=== PATIENT | male | born 1980 | race African-American/Black ===

== ENCOUNTER 2017-12-19 14:55 | Emergency (ER) | payer SELFPAY ==
[2017-12-19 15:04] VITALS: BP 112/63; PULSE 58; RESP 18; TEMP 98; O2SAT 99
--- NOTE | 2017-12-19 16:09 | PD ---
HPI Chief Complaint: GI Complaint Time Seen by Provider: 15:34 Travel History International Travel<30 days: No Contact w/Intl Traveler<30days: No Traveled to known affect area: No History of Present Illness HPI Patient is a 37-year-old male presenting to the emergency department for evaluation of shortness of breath and right rib pain. Patient states his symptoms started at 930 this morning, symptoms last until 1030. He also reports having a right inguinal hernia and reports associated pain with it however the hernia is reducible. He also reported that he needed a note for work because he called in sick today. He called in sick prior to having the shortness of breath this morning. Patient has no other complaints at this time. He reports a right rib injury 13 years ago, no new injury or trauma to cause any rib pain. He denies any cough, fever, chills, abdominal pain, back pain. He states he felt nauseated on Friday but has not vomited or felt nauseous since then. [facility] Past Medical History Inguinal Hernia: Yes (repair) Past Surgical History Abdominal Surgery: Yes (hernia) Social History Alcohol Use: Yes (1 beer per week) Tobacco Use: Yes (1/2 ppd) Substance Use: Yes (marijuana 3-4 per day) Allergies-Medications (Allergen,Severity, Reaction): Coded Allergies: No Known Allergies (Verified , 04/30/15) Reported Meds & Prescriptions Reported Meds & Active Scripts Active No Active Prescriptions or Reported Medications Review of Systems Except as stated in HPI: all other systems reviewed are Neg Respiratory: Positive: Shortness of Breath Physical Exam Narrative GENERAL: Well-developed, well-nourished, well-appearing male. Presenting in no acute distress. SKIN: Warm and dry. HEAD: Atraumatic. Normocephalic. EYES: Pupils equal and round. No scleral icterus. No injection or drainage. ENT: No nasal bleeding or discharge. Mucous membranes pink and moist. NECK: Trachea midline. No JVD. CARDIOVASCULAR: Regular rate and rhythm. RESPIRATORY: No accessory muscle use. Clear to auscultation. Breath sounds equal bilaterally. GASTROINTESTINAL: Abdomen soft, non-tender, nondistended. Hepatic and splenic margins not palpable. No rebound, no guarding, positive bowel sounds. MUSCULOSKELETAL: Extremities without clubbing, cyanosis, or edema. No obvious deformities. NEUROLOGICAL: Awake and alert. No obvious cranial nerve deficits. Motor grossly within normal limits. Five out of 5 muscle strength in the arms and legs. Normal speech. PSYCHIATRIC: Appropriate mood and affect; insight and judgment normal. Data Data Last Documented VS Vital Signs Date Time Temp Pulse Resp B/P (MAP) Pulse Ox O2 Delivery O2 Flow Rate FiO2 12/19/17 15:04 98.0 58 18 112/63 (79) 99 Orders Orders Chest, Single Ap (12/19/17 ) [facility] Medical Decision Making Medical Screen Exam Complete: Yes Emergency Medical Condition: Yes Interpretation(s) Last Impressions Chest X-Ray 12/19/17 0000 Signed Impressions: CONCLUSION: Negative for acute process Vital Signs Date Time Temp Pulse Resp B/P (MAP) Pulse Ox O2 Delivery O2 Flow Rate FiO2 12/19/17 15:04 98.0 58 18 112/63 (79) 99 Differential Diagnosis Costochondritis versus hernia versus incarcerated hernia versus normal examination versus other Narrative Course Patient is a 37-year-old male presenting to the emergency department with multiple vague medical complaints. The hernia pain he reported as chronic, there is no new issues, the hernia is easily reducible on exam. Lung sounds are clear. Patient is a smoker, a single view chest x-ray is ordered and pending. X-ray shows no acute abnormality. Patient will be discharged home, he is encouraged return to emergency department for any new worsening symptoms. Patient was encouraged to avoid tobacco use. Patient stable for discharge. Diagnosis Primary Impression: Breath shortness Referrals: Primary Care Physician Patient Instructions: General Instructions, Shortness of Breath (ED) Departure Forms: Tests/Procedures, Work Release Enter return to work date: Dec 20, 2017 Additional Instructions: Follow-up with your primary doctor Avoid tobacco use Return to emergency department immediately for any new worsening symptoms Med/Other Pt SpecificInfo: No Change to Meds Scripts No Active Prescriptions or Reported Meds Disposition: 01 DISCHARGE HOME Condition: Stable Lidia Albert Dec 19, 2017 16:09
--- NOTE | 2017-12-19 16:13 | RADRPT ---
EXAM DATE: 12/19/2017 4:11 PM EDT AGE/SEX: 37 years / Male INDICATIONS: Shortness of breath and right sided chest pain. CLINICAL DATA: This is the patient's initial encounter. Patient reports that signs and symptoms have been present for 1 day and indicates a pain score of 5/10. MEDICAL/SURGICAL HISTORY: None. None. COMPARISON: No prior exams available for comparison. FINDINGS: A single AP view of the chest demonstrates the lungs to be symmetrically aerated without evidence of mass, infiltrate or effusion. The cardiomediastinal contours are unremarkable. Osseous structures a re intact. CONCLUSION: Negative for acute process Electronically signed by: Hussein Ross MD 12/19/2017 4:11 PM EDT
[2017-12-19 17:29] VITALS: BP 110/62
== END 2017-12-19 17:42 | disposition home or self-care (01) ==
LOC: NEPD 14:55
DX: R06.02 Shortness of breath (principal); F12.90 Cannabis use, unspecified, uncomplicated; F17.210 Nicotine dependence, cigarettes, uncomplicated
CPT/HCPCS: 71045; 99283

== ENCOUNTER 2017-12-29 21:10 | Observation (INO) | payer SELFPAY ==
[~2017-12-29] VITALS: Ht 177.8 cm; Wt 70.0 kg
[2017-12-29 21:18] VITALS: BP 143/96; PULSE 80; RESP 18; TEMP 99.4; O2SAT 100
[2017-12-29] MEDS ORDERED: SODIUM CHLOR 0.9% 1000 ML INJ 1,000 ML IV SCH (21:19)
--- NOTE | 2017-12-29 21:28 | PD ---
HPI Chief Complaint: Abdominal Pain Time Seen by Provider: 21:18 Travel History International Travel<30 days: No Contact w/Intl Traveler<30days: No Traveled to known affect area: No History of Present Illness HPI 37-year-old -[place] male presents emergency department with sudden onset fever, chills, and explosive diarrhea. Patient states he felt fine this morning, and took the bus like he normally does and go off at [employer], when symptoms suddenly started. He states he did not eat at [employer]. He is noted to be febrile by EMS and started on 500 mL of normal saline bolus. Patient denies upper respiratory symptoms, chest pain, shortness of breath, and no current abdominal pain once he had his bout of diarrhea. He denies urinary symptoms or discharge. He denies flank pain. Patient does report his son had "bug" last week. He has no known drug allergies. Patient states that he has had a large left-sided inguinal hernia since 2010, and he has no pain in that at this time. [facility] Past Medical History Inguinal Hernia: Yes (repair) Past Surgical History Abdominal Surgery: Yes (hernia) Social History Alcohol Use: Yes (1 beer per week) Tobacco Use: Yes (1/2 ppd) Substance Use: Yes (marijuana 3-4 per day) Allergies-Medications (Allergen,Severity, Reaction): Coded Allergies: No Known Allergies (Verified , 04/30/15) Reported Meds & Prescriptions Reported Meds & Active Scripts Active No Active Prescriptions or Reported Medications Review of Systems Except as stated in HPI: all other systems reviewed are Neg General / Constitutional: Positive: Fever, Chills Eyes: No: Visual changes HENT: No: Headaches Cardiovascular: No: Chest Pain or Discomfort Respiratory: No: Shortness of Breath Gastrointestinal: Positive: Nausea, Diarrhea, Abdominal Pain, No: Vomiting Genitourinary: No: Dysuria Musculoskeletal: No: Pain Skin: No Rash Neurologic: No: Weakness Psychiatric: No: Depression Endocrine: No: Polydipsia Hematologic/Lymphatic: No: Easy Bruising Physical Exam Narrative GENERAL: Patient has shaking chills, but is able to ambulate with help. SKIN: Warm and dry. Normal color. Normal turgor HEAD: Atraumatic. Normocephalic. EYES: Pupils equal and round. No scleral icterus. No injection or drainage. ENT: No nasal bleeding or discharge. Mucous membranes pink and moist. Pharynx is clear. Airway is patent NECK: Trachea midline. Supple and nontender. CARDIOVASCULAR: Regular rate and rhythm. No murmurs gallops or rubs RESPIRATORY: No accessory muscle use. Clear to auscultation. Breath sounds equal bilaterally. GASTROINTESTINAL: Abdomen soft, non-tender, nondistended. Somewhat hyperactive bowel sounds noted. No point tenderness or rebound. No CVA tenderness. Hepatic and splenic margins not palpable. Patient does indeed have a large left inguinal hernia which is reducible, and nontender. Peristalsis is noted in the left scrotum. The area is nontender and not tense. MUSCULOSKELETAL: Extremities without clubbing, cyanosis, or edema. No obvious deformities. NEUROLOGICAL: Awake and alert. No obvious cranial nerve deficits. Motor grossly within normal limits. Five out of 5 muscle strength in the arms and legs. Normal speech. PSYCHIATRIC: Appropriate mood and affect; insight and judgment normal. Data Data Last Documented VS Vital Signs Date Time Temp Pulse Resp B/P (MAP) Pulse Ox O2 Delivery O2 Flow Rate FiO2 12/29/17 21:18 99.4 80 18 143/96 (112) 100 Orders Orders Complete Blood Count With Diff (12/29/17 21:19) Comprehensive Metabolic Panel (12/29/17 21:19) Lipase (12/29/17 21:19) Lactic Acid (12/29/17 21:19) Prothrombin Time / Inr (Pt) (12/29/17 21:19) Act Partial Throm Time (Ptt) (12/29/17 21:19) Urinalysis - C+S If Indicated (12/29/17 21:19) Ct Abd/Pel W Iv Contrast(Rout) (12/29/17 21:19) Iv Access Insert/Monitor (12/29/17 21:19) Ecg Monitoring (12/29/17 21:19) Oximetry (12/29/17 21:19) Ciprofloxacin 400 Mg Premix (Cipro 400 M (12/29/17 21:30) Metronidazole 500 Mg Inj (Flagyl 500 Mg (12/29/17 21:30) Sodium Chlor 0.9% 1000 Ml Inj (Ns 1000 M (12/29/17 21:19) Sodium Chloride 0.9% Flush (Ns Flush) (12/29/17 21:30) Electrocardiogram (12/29/17 21:19) Chest, Single Ap (12/29/17 21:19) Ondansetron Odt (Zofran Odt) (12/29/17 21:30) Acetaminophen (Tylenol) (12/29/17 21:30) Blood Culture (12/29/17 21:21) Iohexol 350 Inj (Omnipaque 350 Inj) (12/29/17 21:36) Ns (Bolus) Inj (12/29/17 22:45) Labs Laboratory Tests Test 12/29/17 21:20 White Blood Count 7.7 TH/MM3 Red Blood Count 4.34 MIL/MM3 Hemoglobin 13.4 GM/DL Hematocrit 40.8 % Mean Corpuscular Volume 94.1 FL Mean Corpuscular Hemoglobin 31.0 PG Mean Corpuscular Hemoglobin Concent 32.9 % Red Cell Distribution Width 13.1 % Platelet Count 254 TH/MM3 Mean Platelet Volume 8.0 FL Neutrophils (%) (Auto) 86.5 % Lymphocytes (%) (Auto) 10.8 % Monocytes (%) (Auto) 2.0 % Eosinophils (%) (Auto) 0.4 % Basophils (%) (Auto) 0.3 % Neutrophils # (Auto) 6.6 TH/MM3 Lymphocytes # (Auto) 0.8 TH/MM3 Monocytes # (Auto) 0.2 TH/MM3 Eosinophils # (Auto) 0.0 TH/MM3 Basophils # (Auto) 0.0 TH/MM3 CBC Comment DIFF FINAL Differential Comment Prothrombin Time 22.7 SEC Prothromb Time International Ratio 2.2 RATIO Activated Partial Thromboplast Time 33.6 SEC Urine Color YELLOW Urine Turbidity CLEAR Urine pH 7.0 Urine Specific [place] 1.020 Urine Protein NEG mg/dL Urine Glucose (UA) NEG mg/dL Urine Ketones NEG mg/dL Urine Occult Blood NEG Urine Nitrite NEG Urine Bilirubin NEG Urine Urobilinogen 2.0 mg/dL Urine Leukocyte Esterase NEG Urine RBC LESS THAN 1 /hpf Urine WBC LESS THAN 1 /hpf Urine Squamous Epithelial Cells <1 /hpf Urine Mucus FEW /lpf Microscopic Urinalysis Comment CULT NOT INDICATED Blood Urea Nitrogen 25 MG/DL Creatinine 1.25 MG/DL Random Glucose 78 MG/DL Total Protein 8.0 GM/DL Albumin 4.1 GM/DL Calcium Level 9.2 MG/DL Alkaline Phosphatase 43 U/L Aspartate Amino Transf (AST/SGOT) 29 U/L Alanine Aminotransferase (ALT/SGPT) 23 U/L Total Bilirubin 0.8 MG/DL Sodium Level 139 MEQ/L Potassium Level 3.9 MEQ/L Chloride Level 104 MEQ/L Carbon Dioxide Level 23.8 MEQ/L Anion Gap 11 MEQ/L Estimat Glomerular Filtration Rate 78 ML/MIN Lactic Acid Level 3.2 mmol/L Lipase 88 U/L [facility]DM Medical Decision Making Medical Screen Exam Complete: Yes Emergency Medical Condition: Yes Differential Diagnosis Gastroenteritis. Explosive diarrhea. Fever. Sepsis. Narrative Course Patient appears medically stable at time of exam. EKG is ordered, showing sinus rhythm without significant ST changes. Chest x-ray is ordered. Labs ordered including CBC, CMP, lactic acid, lipase, blood cultures 2, and urinalysis. Blood cultures are ordered 2. IV access is maintained and the patient is given 1000 mL of normal saline bolus. Given Zofran [address] of the abdomen/pelvis with IV contrast is ordered. Chest x-ray is unremarkable for acute process. Urinalysis is unremarkable. CBC is unremarkable. Coagulation studies show PT of 22.7, INR is 2.2, 33.6 Chemistries show BUN of 25, creatinine is 1.25, GFR 78, otherwise unremarkable. Lactic acid is elevated at 3.[address] shows: 1. There is a large left inguinal hernia containing small intestines. At least some of the small bowel in the upper abdomen and mid abdomen are abnormally dilated and fluid-filled suggesting that this hernia may be causing some degree of bowel obstruction. 2. Right hydrocele. Second liter of normal saline bolus is ordered. Patient findings are discussed with Dr. Lomax. Coagulation studies are repeated as the patient has no obvious reason for an elevated INR. It is recommended the patient is admitted to observation with GI consult with changes on CT, elevated lactic acid, and large left inguinal hernia. Calls placed to hospitalist. Diagnosis Primary Impression: Diarrhea Qualified Codes: R19.7 - Diarrhea, unspecified Additional Impressions: Elevated lactic acid level Abnormal CT of the abdomen Reducible left inguinal hernia Admitting Information Admitting Physician Requests: Observation Scripts No Active Prescriptions or Reported Meds Condition: Stable Yifan Senior Dec 29, 2017 21:28
[2017-12-29] MEDS ORDERED: ACETAMINOPHEN 500 MG CPLT PO ONE (21:30)
[2017-12-29] MEDS ORDERED: CIPROFLOXACIN 400 MG PREMIX 200 ML IV ONE (21:30)
[2017-12-29] MEDS ORDERED: ONDANSETRON ODT 4 MG TAB PO ONE (21:30)
[2017-12-29] MEDS ORDERED: metroNIDAZOLE 500 MG INJ 100 ML IV ONE (21:30)
[2017-12-29] MEDS ORDERED: SODIUM CHLORIDE 0.9% FLUSH 10 ML FLUSH IV FLUSH PRN (21:30)
[2017-12-29] MEDS ORDERED: IOHEXOL 350 MG/ML 10 ML VIAL (for RAD DIAG) IVCONTRAST ONE (21:36)
[2017-12-29 21:58] LABS: AUTOMATED NEUTROPHIL # 6.6 TH/MM3 (1.8-7.7); BASOPHIL % 0.3 % (0.0-2.0); EOSINOPHIL % 0.4 % (0.0-4.0); HEMATOCRIT 40.8 % (39.0-51.0); HEMOGLOBIN 13.4 GM/DL (13.0-17.0); LYMPH % 10.8 % (9.0-44.0); LYMPHOCYTE # 0.8 TH/MM3 (1.0-4.8); MEAN CELL VOLUME 94.1 FL (80.0-100.0); MEAN CORPUSCULAR HGB CONC 32.9 % (32.0-36.0); MONOCYTE # 0.2 TH/MM3 (0-0.9); NEUT % 86.5 % (16.0-70.0); PLATELET COUNT 254 TH/MM3 (150-450); RED BLOOD COUNT 4.34 MIL/MM3 (4.50-5.90); RED CELL DISTRIBUTION WIDTH 13.1 % (11.6-17.2); WHITE BLOOD COUNT 7.7 TH/MM3 (4.0-11.0)
--- NOTE | 2017-12-29 21:59 | PD ---
Data Data Last Documented VS Vital Signs Date Time Temp Pulse Resp B/P (MAP) Pulse Ox O2 Delivery O2 Flow Rate FiO2 12/29/17:18 99.4 80 18 143/96 (112) 100 Orders Orders Complete Blood Count With Diff (12/29/17 21:19) Comprehensive Metabolic Panel (12/29/17 21:19) Lipase (12/29/17 21:19) Lactic Acid (12/29/17 21:19) Prothrombin Time / Inr (Pt) (12/29/17 21:19) Act Partial Throm Time (Ptt) (12/29/17 21:19) Urinalysis - C+S If Indicated (12/29/17 21:19) Ct Abd/Pel W Iv Contrast(Rout) (12/29/17 21:19) Iv Access Insert/Monitor (12/29/17 21:19) Ecg Monitoring (12/29/17 21:19) Oximetry (12/29/17 21:19) Ciprofloxacin 400 Mg Premix (Cipro 400 M (12/29/17 21:30) Metronidazole 500 Mg Inj (Flagyl 500 Mg (12/29/17 21:30) Sodium Chlor 0.9% 1000 Ml Inj (Ns 1000 M (12/29/17 21:19) Sodium Chloride 0.9% Flush (Ns Flush) (12/29/17 21:30) Electrocardiogram (12/29/17 21:19) Chest, Single Ap (12/29/17 21:19) Ondansetron Odt (Zofran Odt) (12/29/17 21:30) Acetaminophen (Tylenol) (12/29/17 21:30) Blood Culture (12/29/17 21:21) Iohexol 350 Inj (Omnipaque 350 Inj) (12/29/17 21:36) Sodium Chlor 0.9% 1000 Ml Inj (Ns 1000 M (12/29/17 22:45) Admit Order (Ed Use Only) (12/29/17 22:56) Labs Laboratory Tests Test 12/29/17 21:20 White Blood Count 7.7 TH/MM3 Red Blood Count 4.34 MIL/MM3 Hemoglobin 13.4 GM/DL Hematocrit 40.8 % Mean Corpuscular Volume 94.1 FL Mean Corpuscular Hemoglobin 31.0 PG Mean Corpuscular Hemoglobin Concent 32.9 % Red Cell Distribution Width 13.1 % Platelet Count 254 TH/MM3 Mean Platelet Volume 8.0 FL Neutrophils (%) (Auto) 86.5 % Lymphocytes (%) (Auto) 10.8 % Monocytes (%) (Auto) 2.0 % Eosinophils (%) (Auto) 0.4 % Basophils (%) (Auto) 0.3 % Neutrophils # (Auto) 6.6 TH/MM3 Lymphocytes # (Auto) 0.8 TH/MM3 Monocytes # (Auto) 0.2 TH/MM3 Eosinophils # (Auto) 0.0 TH/MM3 Basophils # (Auto) 0.0 TH/MM3 CBC Comment DIFF FINAL Differential Comment Prothrombin Time 22.7 SEC Prothromb Time International Ratio 2.2 RATIO Activated Partial Thromboplast Time 33.6 SEC Urine Color YELLOW Urine Turbidity CLEAR Urine pH 7.0 Urine Specific [place] 1.020 Urine Protein NEG mg/dL Urine Glucose (UA) NEG mg/dL Urine Ketones NEG mg/dL Urine Occult Blood NEG Urine Nitrite NEG Urine Bilirubin NEG Urine Urobilinogen 2.0 mg/dL Urine Leukocyte Esterase NEG Urine RBC LESS THAN 1 /hpf Urine WBC LESS THAN 1 /hpf Urine Squamous Epithelial Cells <1 /hpf Urine Mucus FEW /lpf Microscopic Urinalysis Comment CULT NOT INDICATED Blood Urea Nitrogen 25 MG/DL Creatinine 1.25 MG/DL Random Glucose 78 MG/DL Total Protein 8.0 GM/DL Albumin 4.1 GM/DL Calcium Level 9.2 MG/DL Alkaline Phosphatase 43 U/L Aspartate Amino Transf (AST/SGOT) 29 U/L Alanine Aminotransferase (ALT/SGPT) 23 U/L Total Bilirubin 0.8 MG/DL Sodium Level 139 MEQ/L Potassium Level 3.9 MEQ/L Chloride Level 104 MEQ/L Carbon Dioxide Level 23.8 MEQ/L Anion Gap 11 MEQ/L Estimat Glomerular Filtration Rate 78 ML/MIN Lactic Acid Level 3.2 mmol/L Lipase 88 U/L [facility] Medical Record Reviewed: Yes Supervised Visit with MARYAM: Yes Narrative Course I, Dr. Lomax, have reviewed the advance practice practitioner's documentation and am in agreement, met with the patient face to face, made the diagnosis, and the medical decision making was done by me. The patient was initially evaluated by Yifan, the physician historian research assistant. Please see their complete history and physical. *My assessment and Findings: The patient presents with a history of abdominal pain and diarrhea that began earlier today. The patient reports having multiple family members that were recently sick with a GI illness. Patient arrives with a fever. The patient reports that the pain in his abdomen has resolved currently, however it was present in the suprapubic area and left lower quadrant of the abdomen. The patient reports a history of a left inguinal hernia that is been present since 2010. He denies having any pain associated with his groin. The patient's abdominal examination was done well Yifan, the PA was also at the bedside. Genital exam was also done at this time. The patient's abdominal pain is reportedly improved on my arrival to the room and my initial evaluation. The patient is noted to have a large left inguinal hernia that is soft and able to be reduced. During the course of the patient's emergency department visit, the patient's history, examination, and differential diagnosis were reviewed with the patient. The patient was placed on a senior portfolio manager with oximetry and frequent blood pressure monitoring. The patient had IV access obtained and blood work sent for analysis. The patient was initially provided Tylenol 1 g p.o. 1 for fever, Zofran ODT normal saline 1 L IV fluid bolus, Cipro 400 mg IV, Flagyl 500 mg IV. The patient's laboratory studies were reviewed and remarkable for 12/29/17 21:20 Total Protein 8.0, Albumin 4.1, Calcium Level 9.2, Alkaline Phosphatase 43 L, Aspartate Amino Transf (AST/SGOT) 29, Alanine Aminotransferase (ALT/SGPT) 23, Total Bilirubin 0.8. Lactic acid was elevated at 3.2 which could possibly be related to sepsis, versus dehydration. INR was elevated at 2.2 which will be repeated as the patient denies being on any type coagulants. The patient also denies having any history of liver disease which would that could potentially cause coagulopathy. Urinalysis is unremarkable. Lipase is within normal limits. Radiology studies were reviewed and remarkable for Last Impressions Chest X-Ray 12/29/172118 Signed Impressions: CONCLUSION: Under inflation with mild bibasilar opacity representing atelectasis based on trino silveira's CT. Otherwise, no acute finding is identified. Abdomen/Pelvis CT 12/29/172118 Signed Impressions: CONCLUSION: 1. There is a large left inguinal hernia containing small intestines. At least some of the small bowel in the upper abdomen and mid abdomen are abnormally di lated and fluid-filled suggesting that this hernia may be causing some degree o f bowel obstruction. 2. Right hydrocele. The patient's results were discussed with the patient, including the plan of care. I explained that further testing and/ or monitoring is indicated based on the patient's history, examination, and/ or laboratory findings. Therefore, I recommended admission for additional evaluation. The patient expressed understanding and was agreeable with this plan. The patient was admitted to the hospital in stable condition and sent to a bed under the [facility]. Diagnosis Primary Impression: Nausea, vomiting, and diarrhea Additional Impressions: Lactic acidosis Left inguinal hernia Admitting Information Admitting Physician Requests: Observation Scripts No Active Prescriptions or Reported Meds Doris Lomax MD Dec 29, 2017 21:59
[2017-12-29 22:00] LABS: BILIRUBIN, URINE NEG (NEG); BLOOD, URINE NEG (NEG); GLUCOSE,URINE NEG (NEG); KETONE, URINE NEG (NEG); MUCUS URINE FEW /lpf (OCC); NITRITE,URINE NEG (NEG); SQUAMOUS EPITHELIAL CELL URINE <1 /hpf (0-5); URINE COLOR YELLOW (YELLW/STRAW); URINE LEUKOCYTE ESTERASE NEG (NEG)
[2017-12-29 22:10] LABS: INTERNATIONAL NORMALIZED RATIO 2.2 RATIO; PROTHROMBIN TIME - PATIENT 22.7 SEC (9.8-11.6)
[2017-12-29 22:19] LABS: ALBUMIN 4.1 GM/DL (3.4-5.0); AST (GOT) 29 U/L (15-37); BICARBONATE 23.8 MEQ/L (21.0-32.0); BLOOD UREA NITROGEN 25 MG/DL (7-18); CALCIUM 9.2 MG/DL (8.5-10.1); CHLORIDE 104 MEQ/L (98-107); CREATININE 1.25 MG/DL (0.60-1.30); GLOMERULAR FILTRATION RATE 78 ML/MIN (>89); GLUCOSE,RANDOM 78 MG/DL (74-106); SODIUM (NA) 139 MEQ/L (136-145)
[2017-12-29 22:23] LABS: ALKALINE PHOSPHATASE 43 U/L (45-117); ALT (GPT) 23 U/L (12-78); TOTAL BILIRUBIN ADULT 0.8 MG/DL (0.2-1.0)
--- NOTE | 2017-12-29 22:38 | RADRPT ---
EXAM DATE: 12/29/2017 9:55 PM EDT AGE/SEX: 37 years / Male INDICATIONS: Abdominal pain. CLINICAL DATA: This is the patient's initial encounter. Patient reports that signs and symptoms have been present for 1 week and indicates a pain score of 5/10. MEDICAL/SURGICAL HISTORY: None. Inguinal hernia repair. ORAL CONTRAST: No oral contrast ingested. RADIATION DOSE: 6.64 CTDI (mGy) COMPARISON: No prior exams available for comparison. TECHNIQUE: Multiple contiguous axial images were obtained through the abdomen and pelvis following b olus infusion of 100 ml Omnipaque 350 (iohexol) nonionic water-soluble contrast as a single exam do se. No oral contrast ingested. Using automated exposure control and adjustment of the mA and/or kV a ccording to patient size, radiation dose was kept as low as reasonably achievable to obtain optimal d iagnostic quality images. DICOM format image data is available electronically for review and compari son. FINDINGS: Lower chest: There is a calcified granuloma at the left lung base. Hepatobiliary: No focal liver lesion is identified. Hepatic vasculature demonstrates no abnormality. No calcified gallstones are present. Kidneys: No hydronephrosis, stone, or mass. Adrenal Glands: Within normal limits. Spleen: Within normal limits. Pancreas: Within normal limits. Vascular: The aorta is nonaneurysmal. Bowel/Mesentery: Stomach demonstrates no abnormality. There is a paucity of intraperitoneal fat makin g it difficult to fully evaluate the bowel. However, there is a dilated segments of bowel in the uppe r and midabdomen measuring up to 4.6 cm. These are filled with fluid. At least some of the distal sma ll bowel is normal in size. Portion of bowel extends into the left inguinal hernia. There is no free intraperitoneal air or free fluid. Abdominal Wall: No hernia is visualized. Retroperitoneum: No lymphadenopathy. Bladder: No wall thickening or mass. Reproductive: Within normal limits. Inguinal: No lymphadenopathy. There is a left inguinal hernia which contains small intestines filled with fluid. Extends into the left hemiscrotum. There is a right hydrocele. Musculoskeletal: No acute osseous abnormality is identified. CONCLUSION: 1. There is a large left inguinal hernia containing small intestines. At least some of the small bow el in the upper abdomen and mid abdomen are abnormally dilated and fluid-filled suggesting that this hernia may be causing some degree of bowel obstruction. 2. Right hydrocele. Electronically signed by: Sridhar Owen MD 12/29/2017 10:37 PM EDT
[2017-12-29] MEDS ORDERED: SODIUM CHLOR 0.9% 1000 ML INJ 1,000 ML IV ONE (22:45)
--- NOTE | 2017-12-29 22:53 | RADRPT ---
EXAM DATE: 12/29/2017 10:00 PM EDT AGE/SEX: 37 years / Male INDICATIONS: Fever. CLINICAL DATA: This is the patient's initial encounter. Patient reports that signs and symptoms have been present for 1 day and indicates a pain score of 0/10. MEDICAL/SURGICAL HISTORY: None. None. COMPARISON: [facility] [place], 12/19/2017. [facility] [place] ABDOMEN & PELVIS W CONTRAST, 12/29/2017. . FINDINGS: Portable AP view of the chest demonstrates a normal-sized cardiac silhouette. Lungs are underinflated with mild bibasilar opacity. No pleural effusion or pneumothorax is identified. Bones and soft tissu es demonstrate no acute finding. Calcified granuloma is present at the left lung base. CONCLUSION: Under inflation with mild bibasilar opacity representing atelectasis based on today's CT. Otherwise, no acute finding is identified. Electronically signed by: Sridhar Owen MD 12/29/2017 10:51 PM EDT
[2017-12-30 00:51] VITALS: BP 138/89; PULSE 85; RESP 16; TEMP 99.1; O2SAT 100
[2017-12-30] MEDS ORDERED: SODIUM CHLOR 0.9% 1000 ML INJ 1,000 ML IV SCH (01:32)
[2017-12-30] MEDS ORDERED: SENNOSIDES 8.6 MG TAB PO PRN (01:45)
[2017-12-30] MEDS ORDERED: ACETAMINOPHEN 325 MG TAB PO PRN (01:45)
[2017-12-30] MEDS ORDERED: LACTULOSE SYRUP 20 GM/30 ML CUP PO PRN (01:45)
[2017-12-30] MEDS ORDERED: SODIUM CHLORIDE 0.9% FLUSH 10 ML FLUSH IV FLUSH PRN (01:45)
[2017-12-30] MEDS ORDERED: ONDANSETRON ODT 4 MG TAB PO PRN (01:45)
[2017-12-30] MEDS ORDERED: BISACODYL 10 MG SUPP RECTAL PRN (01:45)
[2017-12-30] MEDS ORDERED: NALOXONE HCL 0.4 MG/ML AMP IV PUSH PRN (01:45)
[2017-12-30] MEDS ORDERED: MAGNESIUM HYDROXIDE SUSP 30 ML CUP PO PRN (01:45)
[2017-12-30 04:08] VITALS: BP 108/69; PULSE 53; RESP 18; TEMP 98.3; O2SAT 97
[2017-12-30] MEDS ORDERED: DOCUSATE SODIUM 50 MG/SENNA 8.6 MG TAB PO SCH (09:00)
[2017-12-30] MEDS ORDERED: SODIUM CHLORIDE 0.9% FLUSH 10 ML FLUSH IV FLUSH SCH (09:00)
[2017-12-30 09:22] VITALS: BP 114/77; PULSE 50; RESP 20; TEMP 97.5; O2SAT 100
--- NOTE | 2017-12-30 10:12 | HHI.DCPOC ---
Discharge Care Plan Diagnosis: (1) Left inguinal hernia (2) Diarrhea Goals to Promote Your Health * To prevent worsening of your condition and complications * To maintain your health at the optimal level Directions to Meet Your Goals Take your medications as prescribed Follow your dietary instruction Follow activity as directed Keep your appointments as scheduled Take your immunizations and boosters as scheduled If your symptoms worsen call your PCP, if no PCP go to Urgent Care Center or Emergency Room Smoking is Dangerous to Your Health. Avoid second hand smoke Call the 24-hour hour crisis hotline for domestic abuse at Grace Mejía PA-C Dec 30, 2017 10:12 am
--- NOTE | 2017-12-30 10:23 | HHI.HP ---
[facility]ician No Primary Care Physician Admission Diagnosis Diarrhea/Elevated Lactic Acid/Abnormal CT/Fever Diagnoses: Chief Complaint: diarrhea Travel History International Travel<30 Days: No Contact w/Intl Traveler <30 Da: No Traveled to Known Affected Are: No History of Present Illness 37-year-old male with history of right inguinal hernia s/p repair in 2006, tobacco use, presents with acute onset of chills, diaphoresis, and explosive diarrhea. Patient reports he has been in his normal state of health, had a few bites of [employer] yesterday afternoon, then within a few hours later he developed explosive nonbloody watery diarrhea. Reports subjective fevers, chills, and sweats. He reported some left lower quadrant abdominal discomfort at the time that has now resolved. Denies any nausea/vomiting. Denies any urinary complaints. Patient reports everyone in his family has been sick with a GI bug over the past week, also experiencing intractable diarrhea. Upon arrival, CT abdomen/pelvis showed large left inguinal hernia containing small intestines. The patient is now seen the next day in observation unit. His diarrhea has resolved, no bowel movement since last night. Denies any further fevers or chills. He is hungry and wants to eat. He has been seen and cleared by the surgeon. The patient has no other medical complaints at this time. Review of Systems Except as stated in HPI: all other systems reviewed are Neg Past Family Social History Past Medical History right inguinal hernia s/p repair Borderline hypertension, not on medications Past Surgical History Right inguinal hernia repair in 2006 Reported Medications Denies taking any medications on a regular basis. Allergies: Coded Allergies: No Known Allergies (Verified , 04/30/15) Active Ordered Medications Current Medications Medications (Trade) Dose Ordered Sig/[place] Route Start Time Stop Time Status Last Admin Sodium Chloride 1,000 ml @ 100 mls/hr Q10H IV 12/30/17 01:32 12/30/17 02:37 (NS Flush) 2 ml UNSCH PRN IV FLUSH 12/30/17 01:45 (NS Flush) 2 ml BID IV FLUSH 12/30/17 09:00 (Tylenol) 650 mg Q4H PRN PO 12/30/17 01:45 (Zofran Odt) 4 mg Q6H PRN PO 12/30/17 01:45 (Narcan Inj) 0.4 mg UNSCH PRN IV PUSH 12/30/17 01:45 (Dayanara-Colace) 1 tab BID PO 12/30/17 09:00 (Milk Of Magnesia Liq) 30 ml Q12H PRN PO 12/30/17 01:45 (Senokot) 17.2 mg Q12H PRN PO 12/30/17 01:45 (Dulcolax Supp) 10 mg DAILY PRN RECTAL 12/30/17 01:45 (Lactulose Liq) 30 ml DAILY PRN PO 12/30/17 01:45 Family History Mother age 49 with bone cancer, also had some abdominal/pelvis tumors Father of "natural causes" in his sleep Social History Smokes tobacco, approximately 1/2 PPD, trying to quit Denies any alcohol use Prior marijuana use, quit 1.5 months ago Physical Exam Vital Signs Vital Signs Date Time Temp Pulse Resp B/P (MAP) Pulse Ox O2 Delivery O2 Flow Rate FiO2 12/30/17 09:22 97.5 50 20 114/77 (89) 100 12/30/17 04:08 98.3 53 18 108/69 (82) 97 12/30/17 02:29 12/30/17 00:51 99.1 85 16 138/89 (105) 100 Room Air 12/29/17 21:18 99.4 80 18 143/96 (112) 100 Physical Exam GENERAL: Well-nourished, well-developed thin young AA female patient in [facility]. SKIN: Warm and dry. No rash. HEAD: Normocephalic. Atraumatic. EYES: Pupils equal and round. No scleral icterus. No injection or drainage. ENT: No nasal bleeding or discharge. Mucous membranes pink and moist. NECK: Supple. Trachea midline. CARDIOVASCULAR: Regular rate and rhythm. No murmur appreciated. RESPIRATORY: No accessory muscle use. Clear to auscultation. Breath sounds equal bilaterally. GASTROINTESTINAL: Abdomen soft, non-tender, nondistended. Normoactive bowel sounds x4. MUSCULOSKELETAL: No obvious deformities. Extremities without clubbing, cyanosis , or edema. NEUROLOGICAL: Awake and alert. No obvious cranial nerve deficits. Motor grossly within normal limits. Normal speech. PSYCHIATRIC: Appropriate mood and affect; insight and judgment normal. Laboratory Laboratory Tests Test 12/29/17 21:20 12/30/17 00:10 White Blood Count 7.7 Red Blood Count 4.34 Hemoglobin 13.4 Hematocrit 40.8 Mean Corpuscular Volume 94.1 Mean Corpuscular Hemoglobin 31.0 Mean Corpuscular Hemoglobin Concent 32.9 Red Cell Distribution Width 13.1 Platelet Count 254 Mean Platelet Volume 8.0 Neutrophils (%) (Auto) 86.5 Lymphocytes (%) (Auto) 10.8 Monocytes (%) (Auto) 2.0 Eosinophils (%) (Auto) 0.4 Basophils (%) (Auto) 0.3 Neutrophils # (Auto) 6.6 Lymphocytes # (Auto) 0.8 Monocytes # (Auto) 0.2 Eosinophils # (Auto) 0.0 Basophils # (Auto) 0.0 CBC Comment DIFF FINAL Differential Comment Prothrombin Time 22.7 Prothromb Time International Ratio 2.2 Activated Partial Thromboplast Time 33.6 Urine Color YELLOW Urine Turbidity CLEAR Urine pH 7.0 Urine Specific Dazey 1.020 Urine Protein NEG Urine Glucose (UA) NEG Urine Ketones NEG Urine Occult Blood NEG Urine Nitrite NEG Urine Bilirubin NEG Urine Urobilinogen 2.0 Urine Leukocyte Esterase NEG Urine RBC LESS THAN 1 Urine WBC LESS THAN 1 Urine Squamous Epithelial Cells <1 Urine Mucus FEW Microscopic Urinalysis Comment CULT NOT INDICATED Blood Urea Nitrogen 25 Creatinine 1.25 Random Glucose 78 Total Protein 8.0 Albumin 4.1 Calcium Level 9.2 Alkaline Phosphatase 43 Aspartate Amino Transf (AST/SGOT) 29 Alanine Aminotransferase (ALT/SGPT) 23 Total Bilirubin 0.8 Sodium Level 139 Potassium Level 3.9 Chloride Level 104 Carbon Dioxide Level 23.8 Anion Gap 11 Estimat Glomerular Filtration Rate 78 Lactic Acid Level 3.2 0.8 Lipase 88 Date/Time Source Procedure Growth Status 12/29/17 21:26 Blood Peripheral Aerobic Blood Culture Pending Received 12/29/17 21:26 Blood Peripheral Anaerobic Blood Culture Pending Received Result Diagram: 12/29/17211912/29/172119 Imaging Last Impressions Chest X-Ray 12/29/172118 Signed Impressions: CONCLUSION: Under inflation with mild bibasilar opacity representing atelectasis based on trino silveira's CT. Otherwise, no acute finding is identified. Abdomen/Pelvis CT 12/29/172118 Signed Impressions: CONCLUSION: 1. There is a large left inguinal hernia containing small intestines. At least some of the small bowel in the upper abdomen and mid abdomen are abnormally di lated and fluid-filled suggesting that this hernia may be causing some degree o f bowel obstruction. 2. Right hydrocele. Caprini VTE Risk Assessment Caprini VTE Risk Assessment: No/Low Risk (score <= 1) Caprini Risk Assessment Model Point Value = 1 Point Value = 2 Point Value = 3 Point Value = 5 Age 41-60 Minor surgery BMI > 25 kg/m2 Swollen legs Varicose veins or History of unexplained or recurrent spontaneous Oral contraceptives or hormone replacement Sepsis (< 1 month) Serious lung disease, including pneumonia (< 1 month) Abnormal pulmonary function Acute myocardial infarction Congestive heart failure (< 1 month) History of inflammatory bowel disease Medical patient at bed rest Age 61-74 Arthroscopic surgery Major open surgery (> 45 min) Laparoscopic surgery (> 45 min) Malignancy Confined to bed (> 72 hours) Immobilizing plaster cast Central venous access Age >= 75 History of VTE Family history of VTE Factor V Leiden Prothrombin [id number] Lupus anticoagulant Anticardiolipin antibodies Elevated serum homocysteine Heparin-induced thrombocytopenia Other congenital or acquired thrombophilia Stroke (< 1 month) Elective arthroplasty Hip, pelvis, or leg fracture Acute spinal cord injury (< 1 month) Prophylaxis Regimen Total Risk Factor Score Risk Level Prophylaxis Regimen 0-1 Low Early ambulation 2 Moderate Order ONE of the following: *Sequential Compression Device (SCD) *Heparin 5000 units SQ BID 3-4 Higher Order ONE of the following medications: *Heparin 5000 units SQ TID *Enoxaparin/Lovenox 40 mg SQ daily (WT < 150 kg, CrCl > 30 mL/min) *Enoxaparin/Lovenox 30 mg SQ daily (WT < 150 kg, CrCl > 10-29 mL/min) *Enoxaparin/Lovenox 30 mg SQ BID (WT < 150 kg, CrCl > 30 mL/min) AND/OR *Sequential Compression Device (SCD) 5 or more Highest Order ONE of the following medications: *Heparin 5000 units SQ TID (Preferred with Epidurals) *Enoxaparin/Lovenox 40 mg SQ daily (WT < 150 kg, CrCl > 30 mL/min) *Enoxaparin/Lovenox 30 mg SQ daily (WT < 150 kg, CrCl > 10-29 mL/min) *Enoxaparin/Lovenox 30 mg SQ BID (WT < 150 kg, CrCl > 30 mL/min) AND *Sequential Compression Device (SCD) Assessment and Plan Assessment and Plan 37-year-old male with history of right inguinal hernia s/p repair in 2006, tobacco use, presents with acute onset of chills, diaphoresis, and explosive diarrhea. Left inguinal hernia: Acute -CT abdomen/pelvis reviewed, shows large left inguinal hernia containing small intestine; at least some of the small bowel in the upper-mid abdomen are abnormally dilated and fluid-filled suggesting that this hernia may be causing some degree of bowel obstruction -Consulted general surgery, no acute surgical intervention at this time, outpatient follow-up -Diet advanced to regular Diarrhea: Acute. Possibly secondary to gastroenteritis versus hernia as above. -Give supportive treatment with IV fluid hydration -Diarrhea now resolved Lactic acidosis: Lactic acidosis 3.2 upon arrival. Suspect secondary to above. Afebrile, no leukocytosis. -Given IV fluid hydration -Repeat lactic acid 0.8, resolved Tobacco Use: chronic -counseled on cessation, patient is trying to quit DVT prophylaxis: Ambulation Discussed Condition With Patient, senior counsel commercial Planning: Will plan to discharge today if the patient tolerates oral intake. Discharge patient to home Condition on discharge: Improved Regular Diet as tolerated Ad Alba activity Rx written: none Follow-up with primary care physician and general surgeon Dr. Grant within 1 week Grace Mejía PA-C Dec 30, 2017 10:23 am
[2017-12-30 12:20] VITALS: BP 125/86; PULSE 57; RESP 16; TEMP 97.6; O2SAT 100
--- NOTE | 2017-12-30 13:42 | EKG ---
Date Performed: 12/29/2017 Time Performed: 21:25:02 PTAGE: 37 years EKG: Sinus rhythm PROBABLE EARLY REPOLARIZATION BORDERLINE ECG NO PREVIOUS TRACING DOCTOR: Jose Klein Interpretating Date/Time 12/30/2017 13:41:14
--- NOTE | 2017-12-31 01:08 | MB ---
cc: Sebastien Grant MD DATE: 12/30/2017 CHIEF COMPLAINT: Diarrhea, left inguinal hernia. REASON FOR CONSULTATION: The patient is a 37-year-old male with history of right inguinal hernia repair in 2006. He states he has had some issue and some pain and complication due to hernia and history of infection. The patient presents with diarrhea and abdominal pain. He noted the diarrhea came yesterday afternoon and he had explosive diarrhea after going to [employer]. He states subjective fevers and chills with sweats and states he had discomfort in his left lower quadrant. He noted to have an inguinal hernia that has been chronic, present for several years. He states the hernia has been present since 2010. He notes a very large hernia. He states it is usually reducible, sometimes it gets stuck, but has always popped back in. He denies any nausea, vomiting or abdominal distention. He denies any further constipation as well. PAST MEDICAL HISTORY: Right inguinal hernia, status post repair, hypertension. PAST SURGICAL HISTORY: Right inguinal hernia repair. SOCIAL HISTORY: Positive smoking. Denies ETOH. Positive marijuana. FAMILY HISTORY: Mother with bone cancer. Father healthy. MEDICATIONS: See EMR. ALLERGIES: NO KNOWN DRUG ALLERGIES. REVIEW OF SYSTEMS: GENERAL: Complains of fevers, chills. HEENT: Denies eye pain, ear pain. NECK: pain. LUNGS: Denies cough or wheeze. HEART: Denies palpitations or chest pain. ABDOMEN: Complains of diarrhea and abdominal pain. Denies nausea or vomiting. GENITOURINARY: Complaining of left inguinal hernia. ENDOCRINE: Denies polyuria or polydipsia. INTEGUMENT: Denies any new masses or lesions. NEUROLOGIC: Denies numbness or tingling. PSYCHIATRIC: Denies change in mood or sensorium. PHYSICAL EXAMINATION: GENERAL: The patient in no acute distress. VITAL SIGNS: Temperature 97.5, pulse 50, respiration 20, blood pressure 114/77, saturation 100%. HEENT: Pupils equal, round, reactive. NECK: Supple. Trachea midline. LUNGS: Clear to auscultation, bilateral expansion. HEART: S1, S2 regular. ABDOMEN: Soft. Minimal tenderness to palpation. Large left inguinal hernia that has spontaneously reduced, minimal tenderness. No erythema, no signs of incarceration or strangulation. Right inguinal hernia incision with scar. No evidence of recurrence. EXTREMITIES: Warm and well perfused. BACK: Normal curvature. NEUROLOGIC: GCS of 15, 5/5 motor all extremities. PSYCHIATRIC: Appropriate mood, appropriate insight. LABORATORY AND DIAGNOSTIC DATA: WBC 7.7, hemoglobin 13.4, hematocrit 40.8, platelets 254. Sodium 139, potassium 3.9, chloride 104, BUN 25, creatinine 1.2. Lactate 3.2, 0.8, AST 29, ALT 23, lipase 88. INR 2.2. CT reviewed by myself, showing a large left inguinal hernia containing some bowel, right hydrocele. ASSESSMENT: This patient is a 37-year-old male with history of left inguinal hernia and presents with diarrhea and abdominal pain along with a presence of inguinal hernia, nonobstructive, presently reduced. PLAN: After full workup, the patient with above named issues. At this point, the patient can have regular diet, pain control, IV fluids. The patient appears to have a large chronic left inguinal hernia. At this point, I discussed with the patient regarding possible operative intervention. I discussed that this is not an emergent case and patient likely has a bout of possible gastroenteritis and acute onset of diarrhea. I recommend this issue be resolved first before entertaining operative repair of hernia. The patient can followup in my office as outpatient for possible hernia repair in the future. Discussed with the patient in detail. He states understanding and agrees and would like to proceed with plan. MD JIMMY Araujo/RPI , 08:37 PM , 01:06 AM
== END 2017-12-30 13:15 | disposition home or self-care (01) ==
LOC: NEPC 21:10 → NEDA 22:58 → NEPFCDU 12-30 03:37
PROVIDERS: ADMIT Hospitalist; ATTEND Hospitalist
DX: K40.90 Unilateral inguinal hernia, without obstruction or gangrene, not specified as recurrent (principal); N43.3 Hydrocele, unspecified; R74.0 Nonspecific elevation of levels of transaminase and lactic acid dehydrogenase [LDH]; I10 Essential (primary) hypertension; E87.2 Acidosis; R79.1 Abnormal coagulation profile; F12.90 Cannabis use, unspecified, uncomplicated; Z72.0 Tobacco use; Z80.8 Family history of malignant neoplasm of other organs or systems
CPT/HCPCS: 71045; 74177; 80053; 81001; 83605; 83690; 85025; 85610; 85730; 87040; 93005; 96361; 96365; 96367; 96376; 99285; G0378; J0744; J7030; Q9967